=== PATIENT | male | born 1940 | race African-American/Black ===

== ENCOUNTER 2021-02-03 10:45 | Emergency (ER) | payer MEDICARE, SELFPAY ==
[2021-02-03] VITALS (8 sets, daily range): BP systolic 48–173; BP diastolic 39–154; PULSE 67–162; RESP 20–31; TEMP 38.3–38.5; O2SAT 94–100
--- NOTE | ~2021-02-03 | XR_ITS ---
EXAMINATION: XR chest ET placement EXAM DATE: 02/03/2021 12:13 INDICATION: Respiratory failure. COVID blue, intubated. TECHNIQUE: Portable AP frontal chest x-ray was obtained. There is no prior study for comparison. FINDINGS: Endotracheal tube tip is 2 centimeters above the monalisa. There is cardiomegaly. Prominent pulmonary arteries, could indicate pulmonary arterial hypertension. There are no sizable pleural effusions. There is no pneumothorax suspected. No confluent consolida tion. There are bony degenerative changes. IMPRESSION: 1. Endotracheal tube in position 2. Cardiomegaly. Possible pulmonary arterial hypertension. Reviewed, dictated and finalized at location A.
--- NOTE | ~2021-02-03 | CT_ITS ---
EXAMINATION: CT brain wo [facility] EXAM DATE: 02/03/2021 11:46 INDICATION: Altered mental status. TECHNIQUE: Spiral CT of the head was performed without contrast. Axial, coronal and sagittal images were reviewed. The dose-length product (DLP) for this examination was 605.33 mGy-cm. The exposure w as tailored according to patient size, and iterative reconstruction (ASIR) was used as additional dos e reduction technique. There is no prior study for comparison. FINDINGS: There is no acute intraparenchymal hemorrhage. No evidence of intraparenchymal brain mass lesion. No evidence of acute infarction. Please note that initial head CT has limited sensitivity f or small or acute infarctions. There is mild periventricular and subcortical hypodensity, nonspecific but probably related to small vessel ischemic disease. There is moderate prominence of the sulci a nd ventricles related to cerebral atrophy. There is intracranial carotid arteriosclerosis. There a re no extra-axial collections. There is no mass effect or midline shift. The orbits are unremarkabl e. Soft tissue is unremarkable. The visualized sinuses and mastoid air cells are well aerated. IMPRESSION: 1. No acute intracranial findings. 2. Chronic age related findings. Reviewed, dictated and finalized at location A.
--- NOTE | 2021-02-03 10:48 | ECG_ITS ---
Measurements Intervals [place] Rate: 175 P: [place]: 0 QRS: -19 QRSD: 86 T: 194 QT: 236 QTc: 403 Interpretive Statements ATRIAL FIBRILLATION WITH RAPID VENTRICULAR RESPONSE CANNOT RULE OUT SEPTAL INFARCT, AGE INDETERMINATE CONSIDER INFERIOR INFARCT, AGE INDETERMINATE ST-T WAVE ABNORMALITY IN ANTEROLAT/HIGH LAT LEADS- CONSIDER ISCHEMIA BASELINE ARTIFACT- I, II, III, AVR, AVL, AVF, V1-V6 ABNORMAL ECG Electronically Signed On 02-03-2021 12:11:41 CDT by Sachin Moreno D.O.
--- NOTE | 2021-02-03 10:50 | ED.AMS ---
HPI - Altered Mental Status General Chief Complaint: Altered Mental Status Stated Complaint: . Time Seen by Provider: 02/03/21 10:48 Source: EMS Mode of arrival: EMS Limitations: clinical condition History of Present Illness HPI narrative: Patient is a 80-year-old male with a history of hypertension, coronary artery disease, CABG, chronic indwelling Fabian catheter, who presents for evaluation of altered mental status via EMS. Patient was at [facility] this morning, found to be lethargic, with altered mental status. EMS was called and patient was emergently transported to our facility. For EMS, the patient was noted to be febrile to 101 Fahrenheit, tachycardic, nonverbal. Apparently his baseline is alert and oriented to person, place, and to time. Patient is a full code per paperwork. Patient is not following any commands. He is not moving at all on bed. He has shallow respirations. He is ill and dehydrated appearing. He does have a chronic indwelling Fabian that appears to have cloudy urine with sediment. He does not guard with palpation of the abdomen. There are no rashes seen on exam. No family is at bedside. Patient has a history of recurrent UTI. Pt is not vaccinated for COVID. No known history of COVID. Review of Systems Review of Systems: ROS unobtainable: Yes unobtainable due to mental status [facility] Social History Social History (Updated 02/03/21 @ 11:02 by Bernice Owens MD) Smoking status: Never smoker Alcohol intake: never Substance use: never Gender identity (if verbalized by the patient): Male Exam Narrative: GENERAL: Ill-appearing, eyes closed on bed HEAD: Normocephalic, atraumatic. EYES: Cannot assess extraocular movements, pupils are 3+ and sluggish bilaterally ENT: Nares clear, no rhinorrhea or epistaxis. Mucous membranes dry NECK: No lymphadenopathy CHEST: Patient with shallow respirations bilaterally, coarse breath sounds bilaterally HEART: Tachycardic rate, regular rhythm ABDOMEN:Non distended, non tender : Chronic indwelling Fabian catheter present EXTREMITIES: Limited spontaneous range of motion SKIN: Warm, dry, no rash. NEURO: Altered mental status, GCS 3 Course Vital Signs Vital signs: Vital Signs Temperature 38.3 C H 02/03/21 10:50 Pulse Rate 162 H 02/03/21 10:50 Respiratory Rate 31 H 10/01/21 10:50 Blood Pressure 144/115 H 02/03/21 10:50 Temperature 38.5 C H 02/03/21 11:35 Pulse Rate 67 02/03/21 12:40 Respiratory Rate 27 H 02/03/21 11:35 Blood Pressure 48/39 L 02/03/21 12:40 Pulse Oximetry 100 02/03/21 12:00 Procedures Central Line Placement Right Femoral: Central Line Date: 02/03/21 Central Line Time: 12:30 Performed Emergently - Given emergent patient condition, temporal constraints may have precluded informed consent.: Yes Time Out Performed: Yes Patient Placed on Monitor/Pulse Ox: Yes Max. Sterile Barrier Technique: Caps, large sterile sheet and hand hygiene Central Line Prep: 2% chlorhexidine scrub and sterile drapes applied Technique: US-Guided Ultrasound Used for Placement: Yes Central Line Lumen Inserted: triple Post Procedure: sutured in place, good blood return and all ports aspirated, flushed, capped Patient Tolerated Procedure: no complications Intubation Intubation #1: Intubation Date: 02/03/21 Intubation Time: 12:30 Time out performed: Yes sedative: Etomidate Mg Given: 5 paralytic: Rocuronium Mg Given: 50 Laryngoscope: other (Glidescope) Method of Intubation: orotracheal Number of Attempts: 1 Tube Secured Depth (cm): 25 Tube Secured Location: teeth Tube Placement Confirmation: visualized tube passing through cords, equal breath sounds bilaterally, no breath sounds over epigastrium and confirmation by capnometry Patient Tolerated Procedure: well an
[2021-02-03 10:58] LABS: Glucose Point of Care 32 mg/dl (65-105)
[2021-02-03] MEDS: DEXTROSE 50% 25 GM/50 ML SYRINGE IV PUSH (11:04)
[2021-02-03] MEDS: ONDANSETRON INJ 4 MG/2 ML VIAL IV PUSH (11:04)
[2021-02-03] MEDS: SODIUM CHLORIDE 0.9% IV 1,000 ML 999 ML IV CONT (11:04)
[2021-02-03 11:08] LABS: Alveolar/Arterial O2 Gradient 186.3 mmHg; Base Excess ABG -11.9 mEq/l (+/-2.0); Carboxyhemoglobin 0.9 % THb (0-2.0); Fractional Inspired Oxygen 44 %; HCO3 ABG 12.5 mEq/l (22.0-26.0); Methemoglobin ABG 0.2 %THb (0-1.5); Oxygen Content ABG 10.2 %vol (16.0-22.0); Oxygen Saturation ABG 97.5 % (95.0-100.0); Oxyhemoglobin 94.9 % THb (90.0-100.0); PO2 ABG 100.9 mmHg (80.0-100.0); PO2 FiO2 Ratio Arterial Blood 2.29 %; pH ABG 7.346 (7.350-7.450)
[2021-02-03 11:10] LABS: Device NASAL CANNULA; Modified Allen's Test Pass; PCO2 ABG 23.3 mmHg (35.0-45.0); Site Drawn LEFT RADIAL; Total Hemoglobin 7.5 g/dL (12.0-18.0)
[2021-02-03 11:28] LABS: Glucose Point of Care 85 mg/dl (65-105)
[2021-02-03 11:48] LABS: Hematocrit 27.2 % (42.0-52.0); Lymphocytes Absolute Auto 0.07 K/mm3 (0.9-3.2); Lymphocytes Percent Auto 9.3 % (18.3-44.2); Mean Corpuscular Hemoglobin 25.4 pg (26-34); Mean Corpuscular Volume 101.5 fl (80-100); Mean Platelet Volume 11.3 fl (7.4-10.4); Monocytes Percent Auto 1.3 % (2.6-8.5); Neutrophils Absolute Auto 0.7 K/mm3 (1.3-6.7); Neutrophils Percent Auto 89.4 % (45.5-73.1); Nucleated Red Blood Cells Absolute Auto 0.2 K/mm3 (0.0-0.012); Platelet Count Result 172 k/mm3 (150-375); Red Blood Count 2.68 M/mm3 (4.6-6.20); Red Cell Distribution Width 18.6 % (11.5-14.5)
[2021-02-03] MEDS: DEXTROSE 50% 25 GM/50 ML SYRINGE (12:00)
[2021-02-03 12:14] LABS: Glucose 36 mg/dL (65-110)
[2021-02-03 12:15] LABS: Alanine Aminotransferase 29 U/L (4-50); Albumin Level 2.6 g/dL (3.5-5.1); Alkaline Phosphatase 99 U/L (38-126); Anion Gap 15 mmol/L (8-16); Aspartate Amino Transferase 69 U/L (17-59); Bilirubin,Total 2.3 mg/dL (0.2-1.3); Blood Urea Nitrogen 39 mg/dL (9-20); Calcium 8.2 mg/dL (8.4-10.2); Carbon Dioxide 11 mmol/L (22-30); Chloride 115 mmol/L (98-107); Estimated CRCL calculation 24 ml/min; Estimated Glomerular Filt Rate 29; Potassium 4.3 mmol/L (3.4-5.0); Sodium 141 mmol/L (137-145)
--- NOTE | 2021-02-03 12:20 | PC.NURSE ---
Spoke with pt daughter Anastacia [phone]- made aware of pt change in status. I will have to catch the bus, I will get up there .
[2021-02-03 12:26] LABS: Hemoglobin 6.8 g/dL (14.0-18.0); White Blood Count 0.8 K/mm3 (4.5-10.0)
--- NOTE | 2021-02-03 12:28 | PC.NURSE ---
Left message on vm of Connie
[2021-02-03 12:29] LABS: Platelet Estimate Adequate (Adequate)
[2021-02-03 12:32] LABS: Acanthocytes 1+ (NORMAL); Anisocytosis 1+ (NORMAL); Burr Cells 1+ (NORMAL); Hypochromasia 1+ (NORMAL); Ovalocytes 1+ (NORMAL); Schistocytes 1+ (NORMAL)
[2021-02-03 12:41] LABS: NT Pro B Type Natriuretic Pept 11000 pg/mL (5-100)
[2021-02-03 12:42] LABS: Lipase < 10 U/L (23-300); Troponin I 0.063 ng/mL (0.000-0.034)
[2021-02-03 12:58] LABS: Glucose Point of Care 78 mg/dl (65-105)
--- NOTE | 2021-02-03 13:00 | PC.NURSE ---
At approx 1150 RN noticed on telemetry that patients heart rate had dropped to 60. Upon entry to the room pt was noted to not be breathing and was pulseless. ACLS protocol started and first dose of EPI given at 1152. ROSC obtained at 1155. Pulse was afib in the 170s. Pt intubated at 1202 with 7.5mm ET tube, 25 at the lip after 5mg etomadate and 50mg of Rocuronium per Dr. Owens verbal order for sedation. Good color change was noted on CO2 detector and pt placed on ventilator. At 1210 pt in AFIB and cardioverted with Dr. Owens at bedside. HR 115 and BP 69/54 at this time. EKG obtained after and noted to be in SR in the 70s. Levophed started per verbal order at 5mcg/min. AT 1222 Pt became pulseless and CPR was resumed with 1 MG EPI given at 1223 and again at 1226. ROSC obtained at 1228 with initial HR of 120 and bp 94/79. Levophed running at this time at 10mcg/min. Central line insertion attempted by Dr. Owens. Pt blood pressure at this time 48/39 with NS running wide open and Levophed running at 15mcg/min. Pt noted to be pulseless again at 1247 with current blood pressure of 43/13. TOD called at this time by Dr. Owens. Family notified.
--- NOTE | 2021-02-03 14:18 | PC.NURSE ---
Notified senior drafter and they will be sending out someone to evaluate pt. [facility] also notified and they have ruled him out for donation due to medical history and state he can be released to home.
--- NOTE | 2021-02-03 14:24 | PC.NURSE ---
Weather Reporter at bedside
--- NOTE | 2021-02-03 14:46 | PC.NURSE ---
[facility] Coroner here at 1426.
--- NOTE | 2021-02-03 15:04 | PC.NURSE ---
Released by Distribution Superintendent at this time. Family left department
--- NOTE | 2021-02-03 15:07 | PC.NURSE ---
[facility] notified of pt expiration
--- NOTE | 2021-02-03 16:41 | ECG_ITS ---
Measurements Intervals [place] Rate: 72 P: [place]: 0 QRS: -52 QRSD: 108 T: 38 QT: 351 QTc: 385 Interpretive Statements ATRIAL FIBRILLATION VENTRICULAR PREMATURE COMPLEXES LEFT AXIS DEVIATION RIGHT BUNDLE BRANCH BLOCK INFERIOR INFARCT, AGE INDETERMINATE BASELINE WANDER- II, III ABNORMAL ECG Electronically Signed On 02-03-2021 17:02:26 CDT by Sachin Moreno D.O.
== END 2021-02-03 16:00 | disposition expired ==
PROVIDERS: Emergency Provider Emergency Medicine
DX: I46.9 Cardiac arrest, cause unspecified (principal); A41.9 Sepsis, unspecified organism; R41.82 Altered mental status, unspecified; I10 Essential (primary) hypertension; I25.10 Atherosclerotic heart disease of native coronary artery without angina pectoris; Z95.1 Presence of aortocoronary bypass graft; I48.91 Unspecified atrial fibrillation; R94.31 Abnormal electrocardiogram [ECG] [EKG]; I51.7 Cardiomegaly; I49.3 Ventricular premature depolarization; I45.10 Unspecified right bundle-branch block; Z87.440 Personal history of urinary (tract) infections
CPT/HCPCS: 31500; 36415; 36556; 36600; 70450; 80053; 82375; 82805; 82948; 83050; 83690; 83880; 84443; 84484; 85025; 86140; 92950; 93005; 96361; 96374; 96375; 96376; 99285; C1751; J0131; J0171; J2405; J7030; J7060